=== PATIENT | male | born 1955 | race African-American/Black ===

== ENCOUNTER 2021-02-22 02:53 | Emergency (ER) | payer OTHER ==
[~2021-02-22] VITALS: Ht 188 cm; Wt 85.0 kg
[2021-02-22 05:08] VITALS: BP 154/83
== END 2021-02-22 05:10 | disposition home or self-care (01) ==
LOC: ER 02:59
DX: F14.10 Cocaine abuse, uncomplicated (principal); R42 Dizziness and giddiness; Z86.73 Personal history of transient ischemic attack (TIA), and cerebral infarction without residual deficits; I10 Essential (primary) hypertension; N40.0 Benign prostatic hyperplasia without lower urinary tract symptoms
CPT/HCPCS: 99284

== ENCOUNTER 2021-08-29 05:58 | Emergency (ER) | payer OTHER ==
[~2021-08-29] VITALS: Ht 177.8 cm; Wt 82.0 kg
[2021-08-29 07:08] LABS: BASOPHILS % 1.1 % (0.0-2.0); EOSINOPHILS % 4.4 % (0.0-5.0); HEMATOCRIT. 36.1 % (42.0-52.0); HEMOGLOBIN. 12.1 g/dL (14.0-18.0); LYMPHOCYTES % 18.1 % (20.0-50.0); MEAN CORPUSCULAR VOLUME 89.5 fL (80.0-94.0); MEAN PLATELET VOLUME 8.9 fl (7.4-10.4); MONOCYTES % 9.2 % (2.0-8.0); NEUTROPHILS % 67.2 % (40.0-76.0); PLATELET 249 x1000/uL (130-400); RED BLOOD CELL COUNT 4.04 mill/uL (4.7-6.1)
[2021-08-29 07:36] LABS: CHLORIDE 104 mEq/L (98-107)
[2021-08-29 08:00] VITALS: BP 162/94
== END 2021-08-29 09:06 | disposition home or self-care (01) ==
LOC: ER 06:11
DX: J02.9 Acute pharyngitis, unspecified (principal); F14.10 Cocaine abuse, uncomplicated; I10 Essential (primary) hypertension
CPT/HCPCS: 36415; 71045; 80053; 83880; 84484; 85025; 87070; 87430; 93005; 99285

== ENCOUNTER 2022-01-08 10:10 | Emergency (ER) | payer OTHER ==
[~2022-01-08] VITALS: Ht 188 cm; Wt 84.0 kg
[2022-01-08] MEDS ORDERED: DIPHENHYDRAMINE 50MG/ML VIAL IV ONE (10:15)
[2022-01-08] MEDS ORDERED: METHYLPREDNISOLONE SOD SUCC 125 MG/2 ML VIAL IV ONE (10:15)
[2022-01-08] MEDS ORDERED: FAMOTIDINE 20MG/2ML VIAL IV ONE (10:30)
[2022-01-08 11:22] LABS: HEMATOCRIT. 34.2 % (42.0-52.0); HEMOGLOBIN. 11.7 g/dL (14.0-18.0); MEAN CORPUSCULAR HEMOGLOBIN 30.3 pg (28.0-32.0); MEAN CORPUSCULAR VOLUME 88.4 fL (80.0-94.0); MEAN PLATELET VOLUME 7.9 fl (7.4-10.4); PLATELET 360 x1000/uL (130-400); RED BLOOD CELL COUNT 3.87 mill/uL (4.7-6.1); RED CELL DISTRIBUTION WIDTH 14.3 % (11.6-14.6)
[2022-01-08 11:31] LABS: CHLORIDE 107 mEq/L (98-107)
[2022-01-08 12:18] LABS: PLATELET ESTIMATE NORMAL
[2022-01-08] MEDS ORDERED: AMLO5TAB4 MT (14:29)
[2022-01-08] MEDS ORDERED: DIPH25CA83 PO (14:29)
[2022-01-08] MEDS ORDERED: P50 MT (14:29)
[2022-01-08 15:08] VITALS: BP 155/80
[2022-01-08 15:17] LABS: CLARITY URINE CLEAR (CLEAR); COLOR URINE YELLOW (YELLOW); KETONES URINE TRACE (NEGATIVE); LEUKOCYTE ESTERASE URINE NEGATIVE (NEGATIVE); NITRITE URINE NEGATIVE (NEGATIVE); OCCULT BLOOD URINE NEGATIVE (NEGATIVE); PROTEIN URINE NEGATIVE (NEGATIVE); SPECIFIC GRAVITY URINE 1.016 (1.005-1.030); UROBILINOGEN URINE 0.2 E.U./dL (0.2-1.0)
== END 2022-01-08 15:09 | disposition home or self-care (01) ==
LOC: ER 10:10
DX: T78.3XXA Angioneurotic edema, initial encounter (principal); I10 Essential (primary) hypertension; E78.00 Pure hypercholesterolemia, unspecified
CPT/HCPCS: 36415; 80053; 81003; 85025; 86850; 86900; 86901; 96374; 96375; 99284; J1200; J2930; J3490